=== PATIENT | female | born 1955 | race Asian ===

== ENCOUNTER 2022-02-25 17:59 | Emergency (ER) | payer OTHER ==
[~2022-02-25] VITALS: Ht 139.7 cm; Wt 51.3 kg
[~2022-02-25 17:59] MED LIST: Aspirin EC81 MG; MAGOXI400 PO; NAPR550 PO; OMEP20ER PO; PRAV10 PO; Prinivil10 MG; VITAMIN
[2022-02-25 18:59] LABS: Source, Urine Clean Catch
[2022-02-25 19:32] LABS: Appearance, Urine Clear (Clear); Bilirubin, Urine Neg (Neg); Blood, Urine 3+ (Neg); Color, Urine Yellow (P-Yellow); Glucose Qualitative, Urine Neg (Neg); Ketones, Urine Neg (Neg); Leukocyte Esterase, Urine 1+ (Neg); Nitrite, Urine Neg (Neg); Protein, Urine 2+ (Neg); Urobilinogen, Urine NORM (Normal)
[2022-02-25 19:55] LABS: Squamous Epithelial Cells Few /hpf (Few)
[2022-02-25 19:56] LABS: Bacteria Few /hpf
[2022-02-25] MEDS ORDERED: TRAM50 PO (20:39)
== END 2022-02-25 20:48 | disposition home or self-care (01) ==
LOC: ER 17:59
PROVIDERS: Physician Assistant
DX: M54.50 Low back pain, unspecified (principal); I10 Essential (primary) hypertension; E78.5 Hyperlipidemia, unspecified; Z88.6 Allergy status to analgesic agent; Z88.1 Allergy status to other antibiotic agents; Z88.8 Allergy status to other drugs, medicaments and biological substances; Z79.82 Long term (current) use of aspirin; Z79.899 Other long term (current) drug therapy
CPT/HCPCS: 72100; 81001; 87086; 99284-25

== ENCOUNTER 2022-10-06 09:52 | Day surgery (SDC) | payer OTHER ==
[~2022-10-06] VITALS: Ht 139.7 cm; Wt 60.8 kg
[~2022-10-06 09:52] MED LIST changes: +TRAM50 PO
== END 2022-10-06 11:33 | disposition home or self-care (01) ==
LOC: ORSCSDS 09:52
PROVIDERS: Ophthalmology
PROC: 08DK3ZZ Extraction of Left Lens, Percutaneous Approach (ICD-10-PCS; principal; 2022-10-06 11:00)
DX: H25.12 Age-related nuclear cataract, left eye (principal); Z86.73 Personal history of transient ischemic attack (TIA), and cerebral infarction without residual deficits; I10 Essential (primary) hypertension; E66.9 Obesity, unspecified; Z68.31 Body mass index [BMI] 31.0-31.9, adult; Z79.82 Long term (current) use of aspirin; Z79.899 Other long term (current) drug therapy
CPT/HCPCS: J2001; J2250; J3010; J3301; J7040; V2632

== ENCOUNTER 2022-10-20 09:39 | Day surgery (SDC) | payer OTHER ==
[~2022-10-20] VITALS: Ht 139.7 cm; Wt 61.8 kg
--- NOTE | 2022-10-20 10:40 | NUR ---
10/20/22 1040 Yoana Gonzalez IN AT 1800 JEREMI IN AT 1800
--- NOTE | 2022-10-20 11:42 | NUR ---
10/20/22 1142 NADIA TURNER STATES NO PAIN BUT IRRITATION OD. REFUSES PRN TYLENOL
== END 2022-10-20 11:50 | disposition home or self-care (01) ==
LOC: ORSCSDS 09:39
PROVIDERS: Ophthalmology
PROC: 08DJ3ZZ Extraction of Right Lens, Percutaneous Approach (ICD-10-PCS; principal; 2022-10-20 11:00)
DX: H25.11 Age-related nuclear cataract, right eye (principal); Z96.1 Presence of intraocular lens; I10 Essential (primary) hypertension; Z86.73 Personal history of transient ischemic attack (TIA), and cerebral infarction without residual deficits; E66.9 Obesity, unspecified; Z68.31 Body mass index [BMI] 31.0-31.9, adult; Z87.891 Personal history of nicotine dependence; Z79.899 Other long term (current) drug therapy
CPT/HCPCS: J2001; J2250; J3010; J3301; J7040; V2632